=== PATIENT | female | born 1990 | race Asian ===

== ENCOUNTER → 2020-11-27 15:42 | Outpatient (CLI) | payer OTHER, SELFPAY ==
[2020-11-27 18:50] LABS: HCG Quantitative /Beta subunit 7707.1 mIU/mL
== END ==
PROVIDERS: PCP Registered Nurse; Referring Provider Family Medicine; Visit Provider Family Medicine
DX: Z34.81 Encounter for supervision of other normal pregnancy, first trimester (principal)
CPT/HCPCS: 36415; 84702

== ENCOUNTER → 2020-11-29 15:24 | Outpatient (CLI) | payer OTHER, SELFPAY ==
[2020-11-29 17:04] LABS: HCG Quantitative /Beta subunit 12780 mIU/mL
== END ==
PROVIDERS: PCP Registered Nurse; Referring Provider Family Medicine; Visit Provider Family Medicine
DX: Z34.81 Encounter for supervision of other normal pregnancy, first trimester (principal)
CPT/HCPCS: 36415; 84702

== ENCOUNTER → 2020-12-12 14:41 | Outpatient (CLI) | payer OTHER, SELFPAY ==
--- NOTE | 2020-12-12 14:42 | DI.US.S_ITS ---
PROCEDURE: US OB <= 14 WEEKS FETUS INDICATIONS: INITIAL SIZING AND DATING OUTSIDE/PRIOR DATING DATA: Last menstrual period (LMP): 10/24/2020 LMP-based estimated date of delivery (HARVEY): 07/31/2021. First dating scan (date and location): 12/12/2020. Estimated date of delivery (HARVEY) from first dating scan: 07/29/2021. TECHNIQUE: Real-time scanning was performed of the fetus and maternal pelvic organs, with image documentation. Endovaginal scanning was also performed to better visualize the fetus and maternal ovaries. COMPARISON: None. FINDINGS: Embryo: [place]-rump length measures 1.2 cm corresponding to 7 weeks 2 days. Heart rate: 152 beats per minute Measurement variability in dating: +/- 4 weeks by LMP, +/- 7 days by mean sac diameter (use before 6 weeks gestation if crown-rump length not able to be measured), +/- 5 days by crown-rump length (up to 8 weeks 6 days gestation), +/- 7 days by crown-rump length (up to 13 weeks 6 days gestation). Maternal organs: Adnexa within normal limits. IMPRESSION: 7 week 2 day single living IUP. Dictated by: Alex Carbajal RR Interpreted: John Rodriguez MD on 12/12/2020 at 15:43 Transcribed by: RENEE on 12/12/2020 at 15:44 Approved by: John Rodriguez M.D. on 12/12/2020 at 17:14
== END ==
PROVIDERS: PCP Registered Nurse; Referring Provider Family Medicine; Visit Provider Family Medicine
DX: Z34.81 Encounter for supervision of other normal pregnancy, first trimester (principal); Z87.59 Personal history of other complications of pregnancy, childbirth and the puerperium; Z3A.01 Less than 8 weeks gestation of pregnancy
CPT/HCPCS: 76801; 76817

== ENCOUNTER → 2020-12-20 10:22 | Outpatient (CLI) | payer OTHER, SELFPAY ==
[2020-12-20 10:47] LABS: Appearance Urine UA CLEAR; Bilirubin Urine UA NEGATIVE (NEGATIVE); Color Urine UA YELLOW; Glucose Urine UA NEGATIVE (Negative); Ketones Urine UA NEGATIVE (NEGATIVE); Leukocyte Esterase Urine UA 1+ (NEGATIVE); Nitrite Urine UA NEGATIVE (Negative); Occult Blood Urine UA 2+ (Negative); Protein Urine UA NEGATIVE (Negative); Specific Gravity Urine UA <=1.005 (1.000-1.035); Urobilinogen Urine UA 0.2 E.U./dL (0.2); pH Urine UA 6.5 (4.5-8.0)
[2020-12-20 10:56] LABS: Bacteria Urine Many (>30); RBC Urine 1-5/HPF (0-5/HPF); Squamous Epithelial Cell Urine 1-5 /HPF (0-5/HPF); WBC Urine 1-5/HPF (0-5/HPF)
[2020-12-20 11:55] LABS: Add Manual Diff / Slide Review NO; Basophils Absolute Auto 0 /uL (0-100); Basophils Percent Auto 0.6 % (0-2); Eosinophils Absolute Auto 300 /uL (0-450); Eosinophils Percent Auto 3.5 % (2-4); Hematocrit 39.4 % (36-46); Hemoglobin 13.2 g/dL (12.0-16.0); Lymphocytes Absolute Auto 1200 /uL (1100-4500); Lymphocytes Percent Auto 15.5 % (25-40); Mean Corpuscular HGB Conc 33.5 % (30-36); Mean Corpuscular Hemoglobin 30.5 PG (26-34); Mean Corpuscular Volume 91.2 fL (80-100); Monocytes Absolute Auto 500 /uL (0-900); Monocytes Percent Auto 6.1 % (3-14); Neutrophils Absolute Auto 5900 /uL (1500-7000); Neutrophils Percent Auto 74.3 % (50-75); Platelet Count 333 X10^3/uL (150-400); Red Blood Cell Count 4.32 X10^6/uL (4.0-5.2); Red Cell Distribution Width 12.7 % (11.6-14.8); White Blood Cell Count 7.9 X10^3/uL (4.5-11.0)
[2020-12-20 13:22] LABS: Hepatitis B Surface Antigen NEGATIVE s/c (NEGATIVE); Rubella Antibody IgG 0.9 IU/mL (>15)
[2020-12-20 13:39] LABS: HIV 1 & 2 Ab/Ag 4th Gen Combo NEGATIVE (NEGATIVE); Hep C Virus Ab w/Reflex Quant NEGATIVE s/c (NEGATIVE)
[2020-12-21 07:36] LABS: RPR Screen Non Reactive (Non Reactive)
[2020-12-21 09:13] LABS: Varicella IgG Antibody 564 index (Immune >165)
== END ==
PROVIDERS: PCP Registered Nurse; Referring Provider Family Medicine; Visit Provider Family Medicine
DX: Z34.81 Encounter for supervision of other normal pregnancy, first trimester (principal)
CPT/HCPCS: 36415; 80055; 81003; 81015; 86787; 86803; 86850; 86900; 86901; 87086; 87389

== ENCOUNTER → 2021-03-03 10:00 | Outpatient (CLI) | payer OTHER, SELFPAY ==
[2021-03-05 19:06] LABS: AFP, Serum 57.6 ng/mL (.); Estriol, Free 1.57 ng/mL (.); Inhibin A, Dimeric 159.61 pg/mL (.); Inhibin A, MoM 1.06 (.); Maternal Ethnicity Other (.); Maternal Weight 170 lbs (.); Number of Fetuses No (.); OSBR Risk 1 IN 4664 (.); Results Report (.); Test Results *Screen Negative* (.); hCG, MoM 1.34 (.); hCG, Serum 33609 mIU/mL (.)
== END ==
PROVIDERS: PCP Registered Nurse; Referring Provider Family Medicine; Visit Provider Family Medicine
DX: Z34.90 Encounter for supervision of normal pregnancy, unspecified, unspecified trimester (principal); Z3A.18 18 weeks gestation of pregnancy
CPT/HCPCS: 36415; 82105; 82677; 84702; 86336

== ENCOUNTER → 2021-03-07 12:11 | Outpatient (CLI) | payer OTHER, SELFPAY ==
--- NOTE | 2021-03-07 12:11 | DI.US.S_ITS ---
PROCEDURE: US OB >= 14 WEEKS FETUS INDICATIONS: anatomy scan OUTSIDE/PRIOR DATING DATA: Last menstrual period (LMP): 10/24/2020. LMP-based estimated date of delivery (HARVEY): 07/31/2021 . First dating scan (date and location): 12/12/2020 at [facility] . Estimated date of delivery (HARVEY) from first dating scan: 07/29/2021 . TECHNIQUE: Real-time scanning was performed of the fetus, with image documentation and biometric measurements. COMPARISON: [facility], , OB <= 14 WEEKS FETUS, 12/12/2020, 14:02. FINDINGS: General: A single living intrauterine gestation is present. Presentation: Vertex. Placenta: Placental position is posterior and appears low lying, with the inferior margin approximately 1.2 cm from the cervix. The placental cord insertion was not well seen. Amniotic fluid index: 11.9 cm, normal range is 5-24 cm. heart rate: 157 beats per minute. Maternal cervical canal: 4.5 cm long. Normal lower limit is 2.5 cm. biometrics: Biparietal diameter: 4.5 cm, 19 weeks 4 days Head circumference: 17.1 cm, 19 weeks 5 days Abdominal circumference: 13.9 cm, 19 weeks 2 days Femur length: 3.1 cm, 19 weeks 5 days Estimated gestational age from initial scan: 19 weeks 3 days Composite gestational age from present scan: 19 weeks 4 days Estimated weight and percentile: 296 g corresponding to the 49th percentile Measurement variability for biometric dating: +/- 7 days from 14 weeks to 15 weeks 6 days gestation, +/- 10 days from 16 weeks to 21 weeks 6 days gestation, +/- 2 weeks from 22 weeks to 27 weeks 6 days gestation, +/- 3 weeks for 28 weeks gestation or later. weight reference: 4500 g or EFW >90/95% is considered macrosomia or large for gestational age. EFW <10% is small for gestational age. EFW 5% or less is considered intra-uterine growth restriction. Anatomic survey: Neuro: Ventricles are non-dilated at less than 10 mm. Cisterna magna is normal at 3-11 mm. Cerebellum is normal in size and morphology. Nuchal skin fold: Normal at less than 6 mm between 14-21 weeks gestational age. Face: Nose and lips, facial profile are not well seen due to position. Spine: No evidence for spina bifida. Heart: heart not well seen due to position. Diaphragm: Diaphragm is not well seen due to position. Stomach: Left-sided stomach is present. Kidneys: No hydronephrosis. Normal is less than 5 mm in 2nd trimester, less than 7 mm in 3rd trimester. Cord: 3-vessel cord has orthotopic insertion. Placental cord insertion not well seen. Bladder: Normal in size. Extremities: All 4 extremities identified. IMPRESSION: 1. Single living intrauterine demonstrating appropriate interval growth with estimated weight at the 49th percentile. 2. Low lying placenta approximately 1.2 cm from the cervical os. Placental cord insertion was not well visualized. Recommend attention on follow-up. 3. facial structures, heart, and diaphragm also not well seen due to position. A repeat study may be performed in 2-4 weeks for further evaluation. Dictated by: Brennan Boyer M.D. on 03/07/2021 at 14:10 Approved by: Brennan Boyer M.D. on 03/07/2021 at 14:18
== END ==
PROVIDERS: PCP Registered Nurse; Referring Provider Family Medicine; Visit Provider Family Medicine
DX: Z36.89 Encounter for other specified antenatal screening (principal); Z3A.19 19 weeks gestation of pregnancy
CPT/HCPCS: 76811

== ENCOUNTER → 2021-03-28 14:14 | Outpatient (CLI) | payer OTHER, SELFPAY ==
--- NOTE | 2021-03-28 14:15 | DI.US.S_ITS ---
PROCEDURE: US OB FOLLOW UP INDICATIONS: FOLLOW-UP OUTSIDE/PRIOR DATING DATA: Last menstrual period (LMP): October 25, 2019. LMP-based estimated date of delivery (HARVEY): July 31, 2021. First dating scan (date and location): [facility]; December 12, 2020. The calculations are made using the ultrasound HARVEY of July 29, 2021. TECHNIQUE: Real-time scanning was performed of the fetus, with image documentation. COMPARISON: [facility], US, US OB <= 14 WEEKS FETUS, 12/12/2020, 14:02. FINDINGS: A single living intrauterine gestation is present. Presentation: Breech. Placenta: Placental position is posterior, without previa. Amniotic fluid index: 12.2 cm, normal range is 5-24 cm. Single deepest vertical pocket is 4.2 cm. heart rate: 163 beats per minute. Maternal cervical canal: 4 cm long. Normal lower limit is 2.5 cm. Estimated gestational age from initial scan: 22 weeks, 3 days. Other: Facial profile: Normal. Four-chamber view: Normal. Outflow tracts: Normal. Chest/diaphragm: Normal. IMPRESSION: No sonographic abnormality. Dictated by: Kemar Gu M.D. on 03/28/2021 at 16:12 Approved by: Kemar Gu M.D. on 03/28/2021 at 16:17
== END ==
PROVIDERS: PCP Registered Nurse; Referring Provider Family Medicine; Visit Provider Family Medicine
DX: Z36.2 Encounter for other antenatal screening follow-up (principal)
CPT/HCPCS: 76816